=== PATIENT | female | born 1945 | race Caucasian/White ===

== ENCOUNTER → 2017-04-29 | Outpatient (CLI) | payer MEDICARE ==
[~2017-04-29] MED LIST: ALBU18002; ASPI81TA28 PO; BNC/20125 PO; BRIN1SUS OPL; GINK40TA3 PO; GLUCTAB18 PO; HOMA5SOL2 OPL; HYDR25TA4 PO; HYDR500C3 PO; LEVO75TA5 PO; MULT-506 PO; SODI5OIN4 OPL; TRAM-10 PO
--- NOTE | 2017-04-30 16:28 | PULMONARY FUNCTION TEST ---
Interpretation is based off ATS criteria. SPIROMETRY: Within normal limits. LUNG VOLUMES: Within normal limits. DIFFUSION CAPACITY: Mildly decreased at 75%, but corrects with alveolar volume to 125%. INTERPRETATION: Normal pulmonary function studies.
== END | disposition home or self-care (01) ==
LOC: C.RC 10:28
PROVIDERS: ATTEND Internal Medicine Critical Care Medicine
DX: J44.9 Chronic obstructive pulmonary disease, unspecified (principal); R06.00 Dyspnea, unspecified

== ENCOUNTER → 2017-07-02 | Outpatient (CLI) | payer MEDICARE ==
[~2017-07-02] MED LIST changes: +GADAVIST IV PRN; +LORAZEPAM 1 MG TAB ONE; +NURSING VERBAL MED ORDER ONE
--- NOTE | 2017-07-02 16:59 | DIAGNOSTIC IMAGING REPORT ---
MRI OF THE BRAIN COMBO CLINICAL HISTORY: Upper and lower extremity weakness. COMPARISON STUDY: No priors. TECHNIQUE: MRI of the brain was performed utilizing various T1 and T2-weighted sequences in the axial, sagittal, and coronal planes. Contrast-enhanced sequences were acquired following the administration of 7 cc of Gadavist. FINDINGS: Brain parenchyma: There are age-related involutional changes noting mild subcortical and the ventricular microangiopathic disease. There is no hemorrhage or mass effect. There is no restricted diffusion to suggest acute ischemia. No enhancing mass lesion is identified on the postcontrast images. Kimbrough-white matter differentiation is preserved. No extra-axial fluid collection is seen. The cerebellar tonsils are normal in configuration. Ventricles, sulci, and cisterns: Prominent second or to involutional change. Pituitary and sella: Unremarkable. Intracranial vasculature: Normal flow voids are maintained at the skull base. Orbits: The bony orbits are grossly intact. Right orbital contents are normal in appearance. The left ocular lens is absent. The left globe appears irregular, atrophic, and heterogeneous. This is likely chronic. Sinuses and mastoids: Mild mucosal thickening is seen within the maxillary antra and ethmoid sinuses. The remaining paranasal sinuses and mastoid air cells are clear. Calvarium: Unremarkable. Cervical cord: Partially visualized cervical spinal cord is normal in morphology and signal intensity. IMPRESSION: No acute intracranial abnormality. Electronically signed by: Gurvinder Colby M.D. 07/02/2017 4:57 PM Dictated Date/Time: 07/02/2017 4:53 PM
== END | disposition home or self-care (01) ==
LOC: C.MRI 13:55
PROVIDERS: ATTEND Internal Medicine Hematology & Oncology
DX: D47.Z9 Other specified neoplasms of uncertain behavior of lymphoid, hematopoietic and related tissue (principal)

== ENCOUNTER → 2018-01-27 | Outpatient (CLI) | payer MEDICARE ==
[~2018-01-27] MED LIST changes: -GADAVIST IV PRN; -LORAZEPAM 1 MG TAB ONE; -NURSING VERBAL MED ORDER ONE
--- NOTE | 2018-01-27 14:49 | DIAGNOSTIC IMAGING REPORT ---
CHEST 2 VIEWS ROUTINE HISTORY: 72 years-old Female [id number] acute cough COMPARISON: CTA of the chest 03/04/2016 TECHNIQUE: PA and lateral views of the chest FINDINGS: Cardiomediastinal and hilar silhouettes are within normal limits. Atherosclerosis of the aorta. There is no pneumothorax, pleural effusion or overt pulmonary edema. Linear subsegmental opacities of the inferior segment lingula are unchanged. There is mild chronic interstitial coarsening. The bones of the chest appear grossly intact. Probable calcific tendinosis of the bilateral rotator cuff. Degenerative changes are seen within the spine and shoulders. IMPRESSION: No acute process. The above report was generated using voice recognition software. It may contain grammatical, syntax or spelling errors. Electronically signed by: Walter Colbert M.D. 01/27/2018 2:48 PM Dictated Date/Time: 01/27/2018 2:46 PM
[2018-01-27 15:36] LABS: BASO % 2.2 %; BASO ABS # 0.08 K/uL (0-0.2); EOS % 3.9 %; EOS ABS # 0.14 K/uL (0-0.5); HEMOGLOBIN 10.8 g/dL (12.0-16.0); IG# 0.03 K/uL (0.00-0.02); LYMPH % 28.7 %; LYMPH ABS # 1.04 K/uL (1.2-3.4); MEAN CELL VOLUME 116.4 fL (80-100); MEAN CORPUSCULAR HEMOGLOBIN 39.3 pg (25-34); MEAN CORPUSCULAR HGB CONC 33.8 g/dl (32-36); MEAN PLATELET VOLUME 9.3 fL (7.4-10.4); MONO % 11.9 %; MONO ABS # 0.43 K/uL (0.11-0.59); NEUT % 52.5 %; PLATELET COUNT 501 K/uL (130-400); RED CELL DISTRIBUTION WIDTH SD 58.5 fL (36.4-46.3); WHITE BLOOD COUNT 3.62 K/uL (4.8-10.8)
[2018-01-27 16:26] LABS: INFLUENZA A PCR Neg for Influ A (NEG); INFLUENZA B PCR Neg for Influ B (NEG)
== END | disposition home or self-care (01) ==
LOC: C.RAD1850 14:17
PROVIDERS: ATTEND Internal Medicine Pulmonary Disease
DX: R05 Cough (principal)